=== PATIENT | female | born 1960 | race Caucasian/White ===

== ENCOUNTER 2016-09-19 22:45 | Emergency (ER) | payer BC ==
[~2016-09-19] VITALS: Ht 170.2 cm; Wt 58.2 kg
[2016-09-19] MEDS ORDERED: PERCOCET 325 MG1 TA2 PO (23:59)
[2016-09-20 00:27] VITALS: BP 130/70
== END 2016-09-20 00:28 | disposition home or self-care (01) ==
LOC: ED 22:45
DX: S40.011A Contusion of right shoulder, initial encounter (principal); S40.211A Abrasion of right shoulder, initial encounter; W17.89XA Other fall from one level to another, initial encounter; Y92.89 Other specified places as the place of occurrence of the external cause
CPT/HCPCS: J1885